=== PATIENT | female | born 2005 | race Caucasian/White ===

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

== ENCOUNTER → 2025-03-05 09:46 | Outpatient (CLI) | payer OTHER, SELFPAY ==
[2025-03-05 11:08] LABS: Add Manual Diff / Slide Review NO; Hematocrit 40.3 % (36-46); Hemoglobin 14.0 g/dL (12.0-16.0); Lymphocytes Absolute Auto 2400 /uL (1100-4500); Mean Corpuscular HGB Conc 34.7 % (30-36); Mean Corpuscular Hemoglobin 29.9 PG (26-34); Mean Corpuscular Volume 86.3 fL (80-100); Platelet Count 252 X10^3/uL (150-400)
[2025-03-05 11:15] LABS: Hemoglobin A1C% w Est Avg Glu 5.3 % (4.0-6.0)
[2025-03-05 11:28] LABS: Alanine Aminotransferase 32 IU/L (<35); Albumin 4.6 g/dL (3.5-5.0); Albumin Globulin Ratio 1.3 (1.0-2.8); Alkaline Phosphatase 84 U/L (38-126); Blood Urea Nitrogen 11 mg/dL (7-17); Calcium 9.3 mg/dL (8.4-10.2); Carbon Dioxide 25 mmol/L (22-32); Chloride 104 mmol/L (98-107); Cholesterol 180 mg/dL (140-199); Estimated Glomerular Filt Rate > 60 mL/min (>60); Globulin 3.5 g/dL (1.7-4.1); Glucose 86 mg/dL (70-99); HDL Cholesterol 45 mg/dL (40-60); HEMOLYSIS < 15 (0-50); Potassium 3.9 mmol/L (3.4-5.1); Sodium 139 mmol/L (137-145); Total Protein 8.1 g/dL (6.3-8.2); Triglycerides 77 mg/dL (35-150)
[2025-03-05 11:57] LABS: Thyroid Stimulating Hormone 2.50 uIU/mL (0.47-4.68)
== END ==
PROVIDERS: PCP Student in an Organized Health Care Education/Training Program; Referring Provider Student in an Organized Health Care Education/Training Program; Visit Provider Student in an Organized Health Care Education/Training Program
DX: E66.9 Obesity, unspecified (principal); N92.6 Irregular menstruation, unspecified
CPT/HCPCS: 36415; 80053; 80061; 83036; 84403; 84443; 85025

== ENCOUNTER → 2025-03-13 09:52 | Outpatient (CLI) | payer OTHER, SELFPAY ==
--- NOTE | 2025-03-13 09:52 | DI.US.S_ITS ---
PROCEDURE: US PELVIC COMPLETE INDICATIONS: irregular menses TECHNIQUE: Real-time scanning was performed of the pelvic organs, with image documentation. Additional endovaginal scanning was necessary due to incomplete visualization of the adnexal and endometrial structures by transabdominal scanning. COMPARISON: None. FINDINGS: Uterus: Uterus is retroverted and normal in size at 5.8 x 4.1 x 4.2 cm. The myometrium is mildly heterogeneous. Questionable isoechoic area involving right anterior uterine fundal region measures 1.1 x 1.6 x 1.1 cm in size and show mild internal vascularity. The endometrium measures 8.1 mm combined thickness. No gross endometrial mass or fluid is seen. Ovaries: The right ovary measures 3.1 x 3.2 x 1.7 cm, with a calculated ovarian volume of 8.9 cc. The left ovary measures 3.0 x 2.7 x 2.1 cm, with a calculated ovarian volume of 9.0 cc. Greater than 12 follicles can be seen in each ovary. Complex appearing thick walled cystic structure is seen in left ovary with peripheral vascularity measures 1.7 x 1.3 x 1.1 cm in size. No adnexal masses are seen. Other: No pathologic free abdominal or pelvic fluid. IMPRESSION: 1. No gross endometrial mass or fluid. Mildly heterogeneous myometrial echotexture. Questionable small uterine fibroid in right anterior myometrium measures 1.6 x 1.1 x 1.1 cm in size. 2. Complex thick-walled cyst involving left ovary measures 1.7 cm in size. No adnexal mass. No gross abnormality is seen in right ovary. 3. Greater than 12 follicles are seen in bilateral ovaries. Findings meet the [place] definition of polycystic ovaries. In the absence of ovulatory dysfunction or clinically/biochemically diagnosed hyperandrogenism, findings are non specific and do not indicate the presence of polycystic ovarian syndrome. We strive to produce accurate, complete, and clear reports of imaging services. To assist us in improving patient care, this report was composed using standard report templates and voice recognition software. Therefore, it may contain abnormal punctuation, insertions and/or omissions. Occasional wrong-word or sound-alike substitutions may occur. Though we review the report and make efforts to correct it, we do recommend that the report be read carefully in proper context to recognize any text inaccuracies. Dictated by: Oliver Winchester M.D. on 03/14/2025 at 15:31 Approved by: Oliver Winchester M.D. on 03/14/2025 at 15:57
== END ==
LOC: US 09:52
PROVIDERS: PCP Student in an Organized Health Care Education/Training Program; Referring Provider Student in an Organized Health Care Education/Training Program; Visit Provider Student in an Organized Health Care Education/Training Program
DX: N92.6 Irregular menstruation, unspecified (principal); N83.202 Unspecified ovarian cyst, left side
CPT/HCPCS: 76830; 76856

== ENCOUNTER → 2025-05-20 07:16 | Outpatient (CLI) | payer OTHER, SELFPAY ==
--- NOTE | 2025-05-20 07:20 | DI.US.S_ITS ---
PROCEDURE: US PELVIC COMPLETE INDICATIONS: abnormal uterine bleeding TECHNIQUE: Real-time scanning was performed of the pelvic organs, with image documentation. Additional endovaginal scanning was necessary due to incomplete visualization of the adnexal and endometrial structures by transabdominal scanning. COMPARISON: [facility], , US PELVIC COMPLETE, 03/13/2025, 10:29. FINDINGS: Uterus: Uterus is retroverted and normal in size at 5.9 x 4.1 x 3.4 cm. The myometrium is mildly heterogeneous but without dominant mass.. The endometrium measures 3.9 mm combined thickness. Normal vascularity throughout the uterus. Ovaries: The right ovary measures 3.2 x 2.9 x 1.7 cm, with a calculated ovarian volume of 8.2 cc. The left ovary measures 2.8 x 2.2 x 2.1 cm, with a calculated ovarian volume of 6.7 cc. The ovaries have a normal sonographic appearance. Numerous tiny, greater than 12 follicles seen bilaterally. No central stromal hypertrophy or suspicious solid mass. No adnexal masses are seen. Other: No pathologic free abdominal or pelvic fluid. IMPRESSION: Minimally heterogeneous uterus, nonspecific. Normal thickness endometrium. Greater than 12 follicles in otherwise normal sized ovaries, probably physiologic. This appearance can be seen in the setting of polycystic ovarian syndrome, however correlation with clinical hyperandrogenism is required for diagnosis. We strive to produce accurate, complete, and clear reports of imaging services. To assist us in improving patient care, this report was composed using standard report templates and voice recognition software. Therefore, it may contain abnormal punctuation, insertions and/or omissions. Occasional wrong-word or sound-alike substitutions may occur. Though we review the report and make efforts to correct it, we do recommend that the report be read carefully in proper context to recognize any text inaccuracies. Dictated by: Luana Pavon M.D. on 05/20/2025 at 17:51 Approved by: Luana Pavon M.D. on 05/20/2025 at 17:56
== END ==
LOC: US 07:19
PROVIDERS: PCP Student in an Organized Health Care Education/Training Program; Referring Provider Student in an Organized Health Care Education/Training Program; Visit Provider Student in an Organized Health Care Education/Training Program
DX: N93.9 Abnormal uterine and vaginal bleeding, unspecified (principal)
CPT/HCPCS: 76830; 76856

== ENCOUNTER 2025-06-17 09:56 | Emergency (ER) | payer OTHER, SELFPAY ==
--- NOTE | 2025-06-17 10:07 | ED_ITS ---
HPI - Extremity Injury (Lower)
--- NOTE | 2025-06-17 10:07 | DI.RAD.S_ITS ---
PROCEDURE: XR KNEE LT 3V
--- NOTE | 2025-06-17 10:07 | ED.LOWEXIN ---
HPI - Extremity Injury (Lower) General Chief Complaint: Extremity Injury, Lower Stated Complaint: Hurt left knee at work L&I Time Seen by Provider: 06/17/25 10:07 Source: patient, RN notes reviewed and old records reviewed Mode of arrival: Wheelchair Limitations: no limitations History of Present Illness HPI Narrative: 19-year-old female only daily medication is phentermine presents with complaint of left knee pain. States there was some water on the floor she slipped or leg went out from underneath her and she states she dislocated her patella and then it went laterally on her left knee. She states that it went back into place. She was seen by EMS and elected to transport via private auto. Patient states no numbness tingling or weakness she states she has been able to walk on it and move it. Has a little bit sore but states it feels much better than when she injured it. She has never had a similar injury she has never had any prior surgeries to her knee. She states phentermine is her only daily medication she denies any major surgeries. No known drug allergies. No tobacco, occasional alcohol, no recreational drugs. This happened at about 9:00 a.m. this morning at work. Related Data Previous Rx's ?Medication ?Instructions ?Recorded phentermine 37.5 mg tablet 37.5 mg PO DAILY #30 tabs 02/24/25 Allergies Allergy/AdvReac Type Severity Reaction Status Date / Time No Known Drug Allergies Allergy Verified 06/17/25 10:08 Review of Systems Review of Systems ROS Unobtainable: All systems reviewed & are unremarkable except as noted in HPI and below Patient History Medical History Obesity ADD (attention deficit disorder) Depression (08/07/17) Family History Mother Crohn's disease Sister Mental health problem History of PCOS Grandfather History of heart disease Hypertension Grandmother Pancreatic cancer Diabetes mellitus Stroke Social History Smoking Status: Never smoker alcohol intake frequency: 0-2 drinks per day Exam Narrative Exam Narrative: GENERAL: Alert and oriented x three, well appearing female. HEENT: Head normocephalic, atraumatic, EOMI, pupils reactive, face symmetric, moist mucous membranes NECK: Supple, full range of motion CARDIOVASCULAR: Regular rate and rhythm without murmurs, rubs or gallops. RESPIRATORY: Breath sounds equal bilaterally, no wheezes rales or rhonchi. ABDOMEN: Soft, nontender. Normoactive bowel sounds all 4 quadrants. No guarding or rebound, rigidity, no mass EXTREMITIES: Normal range of motion, no deformity, no warmth or erythema, no swelling, no clubbing or edema. Neurovascularly intact. 2+ pulses normal sensation. Normal muscle strength. NEUROLOGICAL: Cranial nerves II through XII grossly intact. Moving all extremities SKIN: Warm, dry, no petechiae, no rashes or lesions. Initial Vital Signs Initial Vital Signs: Vital Signs Temperature 98.2 F 06/17/25 10:08 Pulse Rate 77 06/17/25 10:08 Respiratory Rate 17 06/17/25 10:08 Blood Pressure 149/92 H 06/17/25 10:08 Pulse Oximetry 100 06/17/25 10:08 Oxygen Delivery Method Room Air 06/17/25 10:08 Course Orders Ordered: ED Orders 06/17/25 10:07 XR knee LT 3V Stat Discontinued Medications Ibuprofen (Ibuprofen 400 Mg Tablet) 800 mg PO NOW ONE Stop: 06/17/25 10:08 Last Admin: 06/17/25 10:13 Dose: 800 mg Documented By: VASU Vital Signs Vital signs: Vital Signs - 8 hr 06/17/25 10:08 Temperature 98.2 F Pulse Rate 77 Respiratory Rate 17 Blood Pressure 149/92 H Pulse Oximetry 100 Oxygen Delivery Method Room Air MDM - Extremity Injury (Lower) MDM Narrative Medical decision making narrative: Knee x-ray, small joint effusion, no acute bony abnormality. 19-year-old female with sounds like she had a patellar dislocation earlier today appears to be back in place. Patient placed in knee immobilizer Patient may weightbear as tolerated Discharge Plan Departure Patient Disposition: Home Clinical Impression: Closed patellar dislocation Instructions: DI for Patellar Dislocation Activity Restrictions/Additional Instructions: Follow up with primary care and/or orthopedic surgery whichever is your preference. You may weightbear as tolerated, use the knee immobilizer for the next week and then increase your range of motion gently over time. Splint Care: Keep splint clean and dry. Elevated affected body part to decrease swelling. OK to use ice pack on the affected body part. Use for 15-20 minutes each time, for 5-6x per day. If you develop worsening pain, numbness, tingling, discoloration of the affected body part, loosen the splint by loosening the CHILO wrap, and either see your doctor for an urgent re-assessment, or return to the Emergency Department. Return to the Emergency Department for any new or worsening symptoms. Prescriptions: No Action phentermine 37.5 mg tablet 37.5 mg PO DAILY Qty: 30 5RF Rx Instructions: must administer 30 minutes before or 1-2 hours after breakfast Referrals: Leeann Bello DO [Physician, Orthopedic Surgery] Berenice Christian MD [Primary Care Provider, Family Practice] Stand Alone Forms: Patient Portal/API
[2025-06-17 10:08] VITALS: BP 149/92; PULSE 77; RESP 17; TEMP 36.8; O2SAT 100; BMI 41.5
[2025-06-17] MEDS: IBUPROFEN 400 MG TABLET 800 MG PO (10:13)
--- NOTE | 2025-06-17 10:53 | PC.NURSE ---
Patient gave verbal consent to receive instructions in an open,semi-public area.
== END 2025-06-17 11:47 | disposition home or self-care (01) ==
PROVIDERS: Emergency Provider Emergency Medicine; PCP Student in an Organized Health Care Education/Training Program
DX: S83.005A Unspecified dislocation of left patella, initial encounter (principal); W01.0XXA Fall on same level from slipping, tripping and stumbling without subsequent striking against object, initial encounter; Y99.0 Civilian activity done for income or pay
CPT/HCPCS: 73562; 99283